=== PATIENT | male | born 1970 | race Caucasian/White ===

== ENCOUNTER → 2017-09-09 | Outpatient (CLI) | payer BC ==
[~2017-09-09] MED LIST: ACET-1256; HYDC25 PO
[2017-09-09 16:36] LABS: BLOOD UREA NITROGEN 16 mg/dl (7-18); CALCIUM 9.1 mg/dl (8.5-10.1); CARBON DIOXIDE 26 mmol/L (21-32); CREATININE 0.96 mg/dl (0.60-1.40); GLUCOSE 96 mg/dl (70-99); POTASSIUM 4.2 mmol/L (3.5-5.1); SODIUM 136 mmol/L (136-145)
[2017-09-09 16:39] LABS: CHOLESTEROL 157 mg/dl (0-200); LDL CHOLESTEROL CALCULATED 103 mg/dl
== END | disposition home or self-care (01) ==
LOC: C.LABPVFM 07:37
PROVIDERS: ATTEND Nurse Practitioner Family
DX: Z13.1 Encounter for screening for diabetes mellitus (principal)

== ENCOUNTER 2018-01-21 20:45 | Emergency (ER) | payer BC ==
[~2018-01-21] VITALS: Ht 175.3 cm; Wt 117.0 kg
[2018-01-21 20:47] VITALS: Ht 175.3 cm; Wt 117.0 kg
[2018-01-21] MEDS ORDERED: SODIUM CHLORIDE 0.9% 1000ML 1,000 ML IV STA (21:21)
[2018-01-21] MEDS ORDERED: ONDANSETRON INJ 2 MG/ML 2 ML VIAL IV STA (21:21)
[2018-01-21] MEDS ORDERED: KETOROLAC TROMETHAMINE 30 MG/ML VIAL IV STA (21:21)
[2018-01-21] MEDS ORDERED: MULT-513 PO (21:29)
[2018-01-21] MEDS ORDERED: HYDROmorphone INJ 1 MG/ML SYR IV PRN (21:30)
[2018-01-21 21:31] LABS: BASO % 0.3 %; BASO ABS # 0.04 K/uL (0-0.2); HEMOGLOBIN 16.4 g/dL (14.0-18.0); IG# 0.04 K/uL (0.00-0.02); LYMPH % 6.4 %; LYMPH ABS # 0.99 K/uL (1.2-3.4); MEAN CELL VOLUME 90.6 fL (80-100); MEAN CORPUSCULAR HEMOGLOBIN 30.9 pg (25-34); MEAN CORPUSCULAR HGB CONC 34.2 g/dl (32-36); MEAN PLATELET VOLUME 9.9 fL (7.4-10.4); MONO % 4.2 %; MONO ABS # 0.65 K/uL (0.11-0.59); NEUT % 88.8 %; PLATELET COUNT 223 K/uL (130-400); RED CELL DISTRIBUTION WIDTH CV 12.7 % (11.5-14.5); RED CELL DISTRIBUTION WIDTH SD 41.9 fL (36.4-46.3); WHITE BLOOD COUNT 15.42 K/uL (4.8-10.8)
[2018-01-21 21:59] LABS: CALCIUM 9.4 mg/dl (8.5-10.1); CREATININE 1.37 mg/dl (0.60-1.40); POTASSIUM 3.9 mmol/L (3.5-5.1)
--- NOTE | 2018-01-21 22:10 | DIAGNOSTIC IMAGING REPORT ---
CT SCAN OF THE ABDOMEN AND PELVIS WITHOUT IV CONTRAST CLINICAL HISTORY: Left flank pain. COMPARISON STUDY: No priors. TECHNIQUE: CT scan of the abdomen and pelvis is performed from the lung bases to the proximal femora. Images are reviewed in the axial, sagittal, and coronal planes. IV contrast was not administered for this examination as per the referring clinician as per the referring. A dose lowering technique was utilized adhering to the principles of ALARA. CT DOSE: 1856.76 mGy.cm FINDINGS: Lung bases: The heart is normal in size and without pericardial effusion. Calcified mediastinal lymph nodes are partially imaged. Calcified granulomas are present at the right lung base. There is a low suspicion 3 mm pleural-based nodule in the left lower lobe along the major fissure seen on image #6. Dependent atelectasis is observed. No airspace consolidation or pleural effusion is identified. There is a small hiatal hernia. Liver: The unenhanced liver is normal in size, contour, and attenuation. There is no intrahepatic biliary ductal dilatation. Gallbladder: Unremarkable. Spleen: Normal in size and attenuation. Calcified splenic granulomas are observed. Pancreas: Unremarkable. Adrenal glands: Unremarkable. Kidneys: The unenhanced kidneys are normal in size. There is a 4 mm obstructing calculus at the left vesicoureteral junction seen on image #398. This causes moderate left-sided hydroureteronephrosis. There is associated left-sided perinephric stranding and fluid. No additional calculi are identified in either kidney. There is no right-sided hydronephrosis. There is no evidence of contour deforming renal mass lesion. There is a circumaortic left renal vein. Abdominal vasculature: The abdominal aorta is normal in course and caliber. Bowel: There are scattered colonic diverticula without CT evidence of acute diverticulitis. No bowel obstruction is seen. Submucosal fat deposition is noted throughout the colon. This is nonspecific and suggests chronic inflammation. The appendix is well-visualized and normal. Peritoneum: There is no intraperitoneal free air or abdominal ascites. There is a fat-containing umbilical hernia. Lymphadenopathy: None. Pelvic viscera: The bladder is partially decompressed and grossly unremarkable. The prostate and seminal vesicles are normal as imaged. Surgical clips are noted along the spermatic cord bilaterally. 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 Mild lumbar spondylosis is noted at the remaining lumbar levels. No lytic or blastic lesions are seen. IMPRESSION: 1. There is a 4 mm obstructing calculus at the left vesicoureteral junction. This causes moderate left hydroureteronephrosis. 2. There is associated left-sided perinephric stranding and fluid. 3. No additional calculi are identified in either kidney. 4. Additional findings as above. Electronically signed by: Isidro Jim M.D. 01/21/2018 10:09 PM Dictated Date/Time: 01/21/2018 10:02 PM
[2018-01-21] MEDS ORDERED: OXYC-90 PO (22:56)
--- NOTE | 2018-01-21 22:57 | EMERGENCY ROOM VISIT NOTE ---
History Report prepared by Maninder: Denzel Moreira Under the Supervision of: Dr. Jacky Estevez M.D. First contact with patient: 21:06 Chief Complaint: FLANK PAIN Stated Complaint: FLANK PAIN, LOW BACKPAIN History of Present Illness The patient is a 47 year old male who presents to the Emergency Room with complaints of left flank pain beginning this afternoon around lunchtime. The patient rates his current pain as 10/10 in severity and states that it waxes and wanes slightly. He notes that he is unable to drink anything because he vomits. The patient reports a family history of kidney stones. He reports a history of vasectomy. Pt denies LOC, headache, fevers, chills, diaphoresis, visual changes, neck pain , chest pain, breathing difficulties, melena, hematochezia, numbness, weakness, lymphadenopathy, rash, or other complaints. Source of History: patient Onset: this afternoon around lunchtime Position: back (left flank) Symptom Intensity: 10/10 Timing: waxes/wanes (slightly) Associated Symptoms: + vomiting (when attempting to drink) Review of Systems See HPI for pertinent positives and negatives. A total of ten systems were reviewed and were otherwise negative. Past Medical & Surgical Medical Problems: (1) Biceps tendon tear Surgical Problems: (1) History of vasectomy Family History Kidney stones Social History Smoking Status: Never Smoker Current/Historical Medications Scheduled Multivitamins/Minerals (Mvi With Minerals), 1 TAB PO DAILY Scheduled PRN Oxycodone Ir (Roxicodone Ir), 1-2 TAB PO Q6 PRN for Pain Allergies Coded Allergies: No Known Allergies (Verified Allergy, Unknown, 02/24/06) Physical Exam Vital Signs Date Time Temp Pulse Resp B/P (MAP) Pulse Ox O2 Delivery O2 Flow Rate FiO2 01/21/18 23:07 36.8 86 20 144/87 94 01/21/18 22:20 105 14 144/87 94 Room Air 01/21/18 21:34 107 01/21/18 20:47 36.8 86 20 162/93 98 Room Air Physical Exam GENERAL: Awake, alert, uncomfortable-appearing, in mild distress HENT: Normocephalic, atraumatic. Oropharynx unremarkable. EYES: Normal conjunctiva. Sclera non-icteric. NECK: Supple. No nuchal rigidity. FROM. No masses. RESPIRATORY: Clear to auscultation. No wheezes. No rales. Normal respiratory effort. CARDIAC: Normal rate. Normal rhythm. No murmurs. No rubs. Extremities warm and well perfused. Pulses equal. No JVD. GI: Soft, non-distended. No tenderness to palpation. No rebound or guarding. No masses. RECTAL: Deferred. MUSCULOSKELETAL: Atraumatic. Chest examination reveals no tenderness. The back is symmetrical on inspection without obvious abnormality. There is CVA and left flank tenderness to palpation. No joint edema. LOWER EXTREMITIES: Calves are equal size bilaterally and non-tender. No edema. No discoloration. NEURO: Normal sensorium. No sensory or motor deficits noted. SKIN: No rash or jaundice noted. Medical Decision & Procedures ER Provider Diagnostic Interpretation: Radiology results as stated below per my review and radiologist interpretation: CT SCAN OF THE ABDOMEN AND PELVIS WITHOUT IV CONTRAST CLINICAL HISTORY: Left flank pain. COMPARISON STUDY: No priors. TECHNIQUE: CT scan of the abdomen and pelvis is performed from the lung bases to the proximal femora. Images are reviewed in the axial, sagittal, and coronal planes. IV contrast was not administered for this examination as per the referring clinician as per the referring. A dose lowering technique was utilized adhering to the principles of ALARA. CT DOSE: 1856.76 mGy.cm FINDINGS: Lung bases: The heart is normal in size and without pericardial effusion. Calcified mediastinal lymph nodes are partially imaged. Calcified granulomas are present at the right lung base. There is a low suspicion 3 mm pleural-based nodule in the left lower lobe along the major fissure seen on image #6. Dependent atelectasis is observed. No airspace consolidation or pleural effusion is identified. There is a small hiatal hernia. Liver: The unenhanced liver is normal in size, contour, and attenuation. There is no intrahepatic biliary ductal dilatation. Gallbladder: Unremarkable. Spleen: Normal in size and attenuation. Calcified splenic granulomas are observed. Pancreas: Unremarkable. Adrenal glands: Unremarkable. Kidneys: The unenhanced kidneys are normal in size. There is a 4 mm obstructing calculus at the left vesicoureteral junction seen on image #398. This causes moderate left-sided hydroureteronephrosis. There is associated left-sided perinephric stranding and fluid. No additional calculi are identified in either kidney. There is no right-sided hydronephrosis. There is no evidence of contour deforming renal mass lesion. There is a circumaortic left renal vein. Abdominal vasculature: The abdominal aorta is normal in course and caliber. Bowel: There are scattered colonic diverticula without CT evidence of acute diverticulitis. No bowel obstruction is seen. Submucosal fat deposition is noted throughout the colon. This is nonspecific and suggests chronic inflammation. The appendix is well-visualized and normal. Peritoneum: There is no intraperitoneal free air or abdominal ascites. There is a fat-containing umbilical hernia. Lymphadenopathy: None. Pelvic viscera: The bladder is partially decompressed and grossly unremarkable. The prostate and seminal vesicles are normal as imaged. Surgical clips are noted along the spermatic cord bilaterally. 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 Mild lumbar spondylosis is noted at the remaining lumbar levels. No lytic or blastic lesions are seen. IMPRESSION: 1. There is a 4 mm obstructing calculus at the left vesicoureteral junction. This causes moderate left hydroureteronephrosis. 2. There is associated left-sided perinephric stranding and fluid. 3. No additional calculi are identified in either kidney. 4. Additional findings as above. Electronically signed by: Isidro Jim M.D. 01/21/2018 10:09 PM Dictated Date/Time: 01/21/2018 10:02 PM Laboratory Results 01/21/18 21:20 Red Blood Count 5.30, Mean Corpuscular Volume 90.6, Mean Corpuscular Hemoglobin 30.9, Mean Corpuscular Hemoglobin Concent 34.2, Mean Platelet Volume 9.9, Neutrophils (%) (Auto) 88.8, Lymphocytes (%) (Auto) 6.4, Monocytes (%) (Auto) 4.2, Eosinophils (%) (Auto) 0.0, Basophils (%) (Auto) 0.3, Neutrophils # (Auto) 13.70, Lymphocytes # (Auto) 0.99, Monocytes # (Auto) 0.65, Eosinophils # (Auto) 0.00, Basophils # (Auto) 0.04 01/21/18 21:20 Test 01/21/18 21:20 White Blood Count 15.42 K/uL (4.8-10.8) Red Blood Count 5.30 M/uL (4.7-6.1) Hemoglobin 16.4 g/dL (14.0-18.0) Hematocrit 48.0 % (42-52) Mean Corpuscular Volume 90.6 fL (80-100) Mean Corpuscular Hemoglobin 30.9 pg (25-34) Mean Corpuscular Hemoglobin Concent 34.2 g/dl (32-36) Platelet Count 223 K/uL (130-400) Mean Platelet Volume 9.9 fL (7.4-10.4) Neutrophils (%) (Auto) 88.8 % Lymphocytes (%) (Auto) 6.4 % Monocytes (%) (Auto) 4.2 % Eosinophils (%) (Auto) 0.0 % Basophils (%) (Auto) 0.3 % Neutrophils # (Auto) 13.70 K/uL (1.4-6.5) Lymphocytes # (Auto) 0.99 K/uL (1.2-3.4) Monocytes # (Auto) 0.65 K/uL (0.11-0.59) Eosinophils # (Auto) 0.00 K/uL (0-0.5) Basophils # (Auto) 0.04 K/uL (0-0.2) RDW Standard Deviation 41.9 fL (36.4-46.3) RDW Coefficient of Variation 12.7 % (11.5-14.5) Immature Granulocyte % (Auto) 0.3 % Immature Granulocyte # (Auto) 0.04 K/uL (0.00-0.02) Urine Color YELLOW Urine Appearance CLEAR (CLEAR) Urine pH 5.0 (4.5-7.5) Urine Specific [place] 1.024 (1.000-1.030) Urine Protein NEG (NEG) Urine Glucose (UA) NEG (NEG) Urine Ketones NEG (NEG) Urine Occult Blood NEG (NEG) Urine Nitrite NEG (NEG) Urine Bilirubin NEG (NEG) Urine Urobilinogen NEG (NEG) Urine Leukocyte Esterase NEG (NEG) Anion Gap 7.0 mmol/L (3-11) Est Creatinine Clear Calc Drug Dose 82.3 ml/min Estimated GFR () 69.7 Estimated GFR (Non- 60.1 BUN/Creatinine Ratio 13.1 (10-20) Calcium Level 9.4 mg/dl (8.5-10.1) Total Bilirubin 0.5 mg/dl (0.2-1) Direct Bilirubin 0.2 mg/dl (0-0.2) Aspartate Amino Transf (AST/SGOT) 24 U/L (15-37) Alanine Aminotransferase (ALT/SGPT) 36 U/L (12-78) Alkaline Phosphatase 89 U/L (45-117) Total Protein 8.0 gm/dl (6.4-8.2) Albumin 4.0 gm/dl (3.4-5.0) Lipase 86 U/L (73-393) Laboratory results reviewed by me Medications Administered Medications (Trade) Dose Ordered Sig/Jonas Route Start Time Stop Time Status Last Admin Dose Admin Hydromorphone HCl (Dilaudid Inj) 1 mg Q15M PRN IV 01/21/18 21:30 01/21/18 23:29 DC 01/21/18 21:34 1 MG Ondansetron HCl (Zofran Inj) 4 mg NOW STAT IV 01/21/18 21:21 01/21/18 21:23 DC 01/21/18 21:34 4 MG Sodium Chloride 1,000 ml @ 200 mls/hr Q5H STAT IV 01/21/18 21:21 01/21/18 23:29 DC 01/21/18 21:36 200 MLS/HR Ketorolac Tromethamine (Toradol Inj) 10 mg NOW STAT IV 01/21/18 21:21 01/21/18 21:23 DC 01/21/18 21:34 10 MG ED Course 2117: The patient was evaluated in room B8. A complete history and physical exam was performed. 2120: Ordered Toradol 10 mg IV, Sodium Chloride 1000 ml @ 200 mls/hr IV, Zofran 4 mg IV 2129: Ordered Dilaudid 1 mg IV 5: I reevaluated the patient, who states he is feeling great. Discussed results and discharge instructions: He verbalized understanding and agreement. The patient is ready for discharge. 2299: Ordered Zofran ODT 4MG 1 homepack PO, Oxycodone HCl 1 homepack PO Medical Decision Prior records/ancillary studies reviewed. Triage Nursing notes reviewed and agree them. Additional history obtained from the family. The patient's history was concerning for flank and abdominal pain. Differential diagnosis: Etiologies such as renal colic, appendicitis, diverticulitis, mesenteric ischemia, aortic pathology, infections, inflammatory bowel disease, PUD, biliary pathology, UTI, as well as others were entertained. Physical examination findings: As above. ER treatment provided: IV Dilaudid IV normal saline IV Zofran IV Toradol On reassessment the patient felt better. Diagnostic interpretation by me: The labs revealed mild leukocytosis on CBC. Likely stress response. Urinalysis revealed no sign of UTI. LFTs unremarkable. Lipase negative. Imaging studies: CT of the abdomen and pelvis as above. It appears that the patient has isolated renal colic from a left sided stone. By the evaluation outlined above emergent etiologies such as appendicitis, diverticulitis, mesenteric ischemia, aortic pathology, infections, inflammatory bowel disease, PUD, biliary pathology, UTI, as well as others were deemed relatively unlikely. The patient and were informed about the findings as listed above. All questions were answered and they were pleased with the treatment. Return instructions were outlined and the patient was discharged in stable condition. Outpatient prescription management: Oxy IR 5mg 1-2 po Q4 hrs prn Zofran Referral: The patient was referred back to his primary care physician for follow-up in 2 to 3 days for a recheck of the current condition. Medication Reconcilliation Current Medication List: was personally reviewed by me Blood Pressure Screening Patient's blood pressure: Elevated blood pressure Blood pressure disposition: Referred to PCP Impression Primary Impression: Ureterolithiasis Additional Impression: Left flank pain Scribe Attestation The scribe's documentation has been prepared under my direction and personally reviewed by me in its entirety. I confirm that the note above accurately reflects all work, treatment, procedures, and medical decision making performed by me. Departure Information Dispostion Home / Self-Care Prescriptions Oxycodone Ir (Roxicodone Ir) 5 Mg Tab 1-2 TAB PO Q6 Y for Pain, #12 TAB Prov: Jacky Estevez MD 01/21/18 Referrals Karla Pedraza (PCP) Forms HOME CARE DOCUMENTATION FORM, IMPORTANT VISIT INFORMATION Patient Instructions [facility] Additional Instructions KIDNEY STONE INSTRUCTIONS: Oxycodone Immediate Release (OxyIR) 5mg: Take 1-2 pills every four hours for pain. Avoid alcohol, operating machinery or dangerous equipment, working on ladders or roofs, DRIVING, or situations where being under the influence may be dangerous. It is recommended to use an [id number] stool softener such as Colace, 100mg twice daily while taking this medication to avoid constipation. Zofran 4 mg oral dissolving tablets: take one tablet and allow it to melt in your mouth every 4 hours as needed for nausea. Ibuprofen(Motrin, Advil) may be used for fever or pain. Use 600mg every six hours as needed. Take with food. Avoid using more than 2400mg in a 24 hour period. Do not use 2400mg per day for more than three consecutive days without physician direction. Prolonged inappropriate use can lead to stomach upset or ulcers. This medication can be taken if you need to drive, work, or perform activities which may be dangerous when taking narcotic pain medication. (AND/OR) Acetaminophen(Tylenol) may be used for fever or pain. Use 1000mg every six hours as needed. Avoid using more than 4000mg in a 24 hour period. This medication can be taken if you need to drive, work, or perform activities which may be dangerous when taking narcotic pain medication. Strain your urine and collect all the stones or debris for the urologists. Rest and avoid strenuous activity until your stone passes and symptoms resolve. Drink plenty of fluids. Return to the ER for worsening abdominal or back pain, vomiting, fevers, passing out, or as needed. Follow-up with your primary care physician in 2 to 3 days for a recheck of your current condition. Problem Qualifiers
[2018-01-21] MEDS ORDERED: OXYCODONE IR HOME PACK PO ONE (23:00)
[2018-01-21] MEDS ORDERED: ONDANSETRON HOME PACK 4MG OD TAB PO ONE (23:00)
[2018-01-21 23:07] VITALS: BP 144/87; PULSE 86; TEMP 36.8; O2SAT 94
== END 2018-01-21 23:08 | disposition home or self-care (01) ==
LOC: C.EDB 20:47
DX: N13.2 Hydronephrosis with renal and ureteral calculous obstruction (principal); Z98.52 Vasectomy status; Z84.1 Family history of disorders of kidney and ureter